=== PATIENT | female | born 2000 | race Caucasian/White ===

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

== ENCOUNTER 2018-09-03 01:20 | Emergency (ER) | payer SELFPAY ==
--- NOTE | 2018-09-03 02:08 | ER Document Report ---
ED General - General Chief Complaint: Loose Stools Stated Complaint: DIARRHEA Time Seen by Provider: 09/03/18 01:56 Mode of Arrival: Ambulatory Information source: Patient TRAVEL OUTSIDE OF THE [place] 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, rash on the right foot Onset: Yesterday Onset/Duration: Better Quality of pain: Achy, Cramping Severity: Mild Pain Level: 1 Associated symptoms: Diarrhea Exacerbated by: Denies Relieved by: Denies Similar symptoms previously: No Recently seen / treated by doctor: No Notes: Patient is a 18-year-old female presenting to the emergency room complaining of an itchy rash on the dorsum of her right foot that has been present for several weeks, she has been applying hydrocortisone cream with no relief, she also states that over the last 2 days she has had some loose stools and possibly passed a warm today, states the warm was white with a black dot on the tip, and resembled a "meal worm", she had some vomiting yesterday but none today, she denies any abdominal pain at present, no fevers, she denies any recent traveling , no consumption of unclean water or undercooked foods - Related Data Allergies/Adverse Reactions: No Known Allergies Allergy (Verified 03/23/17 01:08) Past Medical History - General Information source: Patient - Social History Smoking Status: Current Every Day Smoker Frequency of alcohol use: Social Drug Abuse: Marijuana Family History: Reviewed & Not Pertinent Patient has suicidal ideation: No Patient has homicidal ideation: No Renal/ Medical History: Denies: Hx Peritoneal Dialysis Psychiatric Medical History: Reports: Hx Attention Deficit Hyperactivity Disorder, Hx Bipolar Disorder, Hx Depression Review of Systems - Review of Systems Constitutional: No symptoms reported EENT: No symptoms reported Cardiovascular: No symptoms reported Respiratory: No symptoms reported Gastrointestinal: See HPI Genitourinary: No symptoms reported Female Genitourinary: No symptoms reported Musculoskeletal: No symptoms reported Skin: See HPI Hematologic/Lymphatic: No symptoms reported Neurological/Psychological: No symptoms reported -: Yes All other systems reviewed and negative Physical Exam - Vital signs Vitals: Temp Pulse Resp BP Pulse Ox 98.9 F 108 H 18 149/86 H 100 09/03/18 01:25 09/03/18 01:25 09/03/18 01:25 09/03/18 01:25 09/03/18 01:25 Interpretation: Normal - General General appearance: Appears well, Alert - HEENT Head: Normocephalic, Atraumatic Eyes: Normal Pupils: PERRL - Respiratory Respiratory status: No respiratory distress Chest status: Nontender Breath sounds: Normal Chest palpation: Normal - Cardiovascular Rhythm: Regular Heart sounds: Normal auscultation Murmur: No - Abdominal Inspection: Normal Distension: No distension Bowel sounds: Normal Tenderness: Nontender Organomegaly: No organomegaly - Back Back: Normal, Nontender - Extremities General upper extremity: Normal inspection, Nontender, Normal color, Normal ROM , Normal temperature General lower extremity: Normal inspection, Nontender, Normal color, Normal ROM , Normal temperature, Normal weight bearing. No: Wilbur's sign - Neurological Neuro grossly intact: Yes Cognition: Normal Orientation: AAOx4 [place] Coma Scale Eye Opening: Spontaneous [place] Coma Scale Verbal: Oriented [place] Coma Scale Motor: Obeys Commands [place] Coma Scale Total: 15 Speech: Normal Motor strength normal: LUE, RUE, LLE, RLE Sensory: Normal - Psychological Associated symptoms: Normal affect, Normal mood - Skin Skin Temperature: Warm Skin Moisture: Dry Skin Color: Normal Location of irregularity: Other - On the dorsum of the right foot is a 3 cm circular erythematous lesion with central clearing, no drainage, no tenderness, no change in temperature, distal sensation and motor is 2+ DP pulses Course - Re-evaluation Re-evalutation: 09/03/18 02:08 18-year-old female with loose watery stools with passage of possible parasitic 1 today, also having a rash on the dorsum of her right foot which resembles ringworm, she will be given a topical antifungal and an oral antiparasitic prescription, with instructions to follow-up with primary care or return if symptoms worsen, patient acknowledges understanding and agreement with this plan 09/03/18 02:27 Patient was unable to provide a stool sample today, however her description is consistent with likely pinworm or other parasitic worm, therefore given a prescription for albendazole and also prescription for clotrimazole topical cream for the tinea corporis on her right foot, patient advised to follow-up with a primary care provider or return if symptoms worsen - Vital Signs Vital signs: Temp Pulse Resp BP Pulse Ox 98.9 F 108 H 18 149/86 H 100 09/03/18 01:25 09/03/18 01:25 09/03/18 01:25 09/03/18 01:25 09/03/18 01:25 Discharge - Discharge Clinical Impression: Parasitic intestinal disease Ringworm of foot Qualifiers: Laterality: right Qualified Code(s): B35.3 - Tinea pedis Condition: Stable Disposition: HOME, SELF-CARE Instructions: Intestinal Parasites - Pinworms ([facility]), Ringworm (Tinea Corporis) ([facility]) Additional Instructions: Follow up with your primary care provider in one to 2 days. Return to the emergency room immediately if symptoms worsen or any additional concerns. Prescriptions: Albendazole [Albenza] 200 mg PO ONCE PRN #2 tablet PRN Reason: Clotrimazole 1% Topical [Lotrimin 1% Topical Soln 10 ml] 1 applic TP BID #10 ml
[2018-09-03 02:31] VITALS: BP 139/89
== END 2018-09-03 02:32 | disposition home or self-care (01) ==
LOC: ER 01:20
DX: B82.9 Intestinal parasitism, unspecified (principal); B35.3 Tinea pedis; R19.7 Diarrhea, unspecified; F17.200 Nicotine dependence, unspecified, uncomplicated
CPT/HCPCS: 99283

== ENCOUNTER 2018-12-28 03:44 | Emergency (ER) | payer SELFPAY ==
[2018-12-28 03:54] VITALS: BP 137/87
[2018-12-28] MEDS ORDERED: IPRATROPIUM/ALBUTEROL 0.5-2.5 MG/3 ML AMPUL NEB ONE (04:14)
[2018-12-28] MEDS ORDERED: GUAIFENESIN/CODEINE PHOS 100-10 MG/ 5 ML UDC PO ONE (04:15)
[2018-12-28] MEDS ORDERED: IBUPROFEN 600 MG TABLET PO ONE (04:21)
--- NOTE | 2018-12-28 04:24 | ER Document Report ---
ED General - General Chief Complaint: Congestion Stated Complaint: BODY ACHES Time Seen by Provider: 12/28/18 04:11 Mode of Arrival: Ambulatory Information source: Patient, [facility] [place] Records Notes: 18-year-old female with bipolar disorder, depression presents with complaint of cough, body aches that started 1 day prior to arrival. Patient describes the cough as constant, nonproductive. She denies any associated headache, sore throat, ear pain, shortness of breath, chest pain. She does admit to upper back pain, rib pain when coughing and describes it as an aching pain. She has tried [id number] cough medicine without relief. Patient has not received a flu shot. Patient is a tobacco user. TRAVEL OUTSIDE OF THE [place] IN LAST 30 DAYS: No - HPI Onset: Yesterday Onset/Duration: Gradual, Persistent Quality of pain: Achy Associated symptoms: Body/muscle aches, Nonproductive cough. denies: Diarrhea, Headache, Nausea, Vomiting, Rhinnorhea, Shortness of breath Exacerbated by: Coughing Relieved by: Denies Similar symptoms previously: Yes Recently seen / treated by doctor: No - Related Data Allergies/Adverse Reactions: No Known Allergies Allergy (Verified 03/23/17 01:08) Past Medical History - General Information source: Patient, [facility] [place] Records - Social History Smoking Status: Never Smoker Chew tobacco use (# tins/day): No Frequency of alcohol use: None Drug Abuse: None Lives with: Family Family History: Reviewed & Not Pertinent Patient has suicidal ideation: No Patient has homicidal ideation: No Renal/ Medical History: Denies: Hx Peritoneal Dialysis Psychiatric Medical History: Reports: Hx Attention Deficit Hyperactivity Disorder, Hx Bipolar Disorder, Hx Depression Review of Systems - Review of Systems Notes: REVIEW OF SYSTEMS: CONSTITUTIONAL : Denies fever, chills, or sweats. Denies recent illness. Denies weight loss, recent hospitalizations. EENT: Denies visual changes, eye pain. Denies sore throat, oral lesions, difficulty swallowing. CARDIOVASCULAR: Denies chest pain. Denies palpitations. Denies lower extremity edema. RESPIRATORY: Denies shortness of breath, wheezing. GASTROINTESTINAL: Denies abdominal pain or distention. Denies nausea, vomiting, or diarrhea. Denies blood in vomitus, stools, or per rectum. Denies black, tarry stools. Denies constipation. GENITOURINARY: Denies difficulty urinating, painful urination, frequency, blood in urine, or vaginal discharge. MUSCULOSKELETAL: Denies neck pain or stiffness. Denies joint swelling. SKIN: Denies rash, lesions or sores. HEMATOLOGIC : Denies easy bruising or bleeding. LYMPHATIC: Denies swollen glands. NEUROLOGICAL: Denies confusion or altered mental status. Denies loss of consciousness. Denies dizziness or lightheadedness. Denies headache. Denies weakness or paralysis. Denies problems difficulty with ambulation, slurred speech. Denies sensory loss, numbness, or tingling. Denies seizures. PSYCHIATRIC: Denies anxiety or stress. Denies depression, suicidal ideation, or homicidal ideation. Denies visual or auditory hallucinations. Physical Exam - Vital signs Vitals: Temp Pulse Resp BP 100.3 F 65 16 137/87 H 12/28/18 03:45 12/28/18 03:45 12/28/18 03:45 12/28/18 03:45 - Notes Notes: PHYSICAL EXAMINATION: GENERAL: Well-appearing, well-nourished and in no acute distress. HEAD: Atraumatic, normocephalic. EYES: Pupils equal round and reactive to light, extraocular movements intact, conjunctiva are normal. ENT: Nares patent, oropharynx clear without exudates. Moist mucous membranes. NECK: Normal range of motion, supple without lymphadenopathy LUNGS: Breath sounds clear to auscultation bilaterally and equal. No wheezes rales or rhonchi. HEART: Regular rate and rhythm without murmurs ABDOMEN: Soft, nontender, nondistended abdomen. No guarding, no rebound. No masses appreciated. Female : deferred Musculoskeletal: Normal range of motion, no pitting or edema. No cyanosis. NEUROLOGICAL: Cranial nerves grossly intact. Normal speech, normal gait. Normal sensory, motor exams PSYCH: Normal mood, normal affect. SKIN: Warm, Dry, normal turgor, no rashes or lesions noted. Course - Re-evaluation Re-evalutation: 12/28/18 04:23 Temp Pulse Resp BP Pulse Ox 100.3 F 65 16 137/87 H 12/28/18 03:45 12/28/18 03:45 12/28/18 03:45 12/28/18 03:45 Chest X-Ray 12/28/18 04:11 IMPRESSION: No acute cardiopulmonary abnormality copyright 2010 [employer]- All Rights Reserved Laboratory 12/28/18 04:15 Influenza A (Rapid) NEGATIVE Influenza B (Rapid) NEGATIVE 18-year-old female presents with complaint of cough, myalgia, upper back pain that started yesterday. Cough is described as dry, persistent. Patient has tried [id number] cough medicine without relief. Upon arrival patient does have a fever but is not tachycardic or hypoxic. She has no increased work of breathing, accessory muscle use. Previous medical records and nursing notes were reviewed. Patient does not appear toxic or dehydrated. She is in no acute distress. Chest x-ray pending. Patient was administered a DuoNeb and Robitussin during her ED course. Prior to completing patient's evaluation she is requesting discharge home. Chest x-ray was obtained and showed no acute process and influenza was negative. 12/28/18 06:09 - Vital Signs Vital signs: Temp Pulse Resp BP Pulse Ox 100.3 F 65 16 137/87 H 12/28/18 03:45 12/28/18 03:45 12/28/18 03:45 12/28/18 03:45 - Diagnostic Test Radiology reviewed: Image reviewed, Reports reviewed Discharge - Discharge Clinical Impression: URI (upper respiratory infection) Qualifiers: URI type: unspecified URI Qualified Code(s): J06.9 - Acute upper respiratory infection, unspecified Condition: Good Disposition: HOME, SELF-CARE Instructions: Upper Respiratory Illness ([facility]), Viral Syndrome ([facility]) Additional Instructions: Your symptoms are most likely due to a viral infection it should resolve over the next 7-14 days. You should take idcv-ogt-[id number] guanfacine per bottle instructions to help thin the mucus. For nasal congestion: I would recommend that you get [id number] oxymetazoline also known is afrin. Use only per bottle instructions and be sure to never use this for more than 3 days if you can develop severe rebound congestion. You may also use tylenol or ibuprofen as needed for aches and thorat discomfort. Please be sure to drink plenty of fluids and get rest. Return to the emergency department he began having difficulty breathing, chest pain, persistent vomiting, or any other symptoms that are concerning to you. Prescriptions: Guaifenesin/Codeine Phos [Robitussin-AC Syrup 59 ml] 5 ml PO Q12H #50 ml Forms: Elevated Blood Pressure, Return to Work
--- NOTE | 2018-12-28 04:41 | RADIOLOGY REPORT (SQ) ---
EXAM DESCRIPTION: XR CHEST 2 VIEWS COMPLETED DATE/TME: 12/28/2018 04:11 CLINICAL HISTORY: 18 years, Female, cough fever COMPARISON: 09/15/2015 NUMBER OF VIEWS: Two TECHNIQUE: Two views of the chest LIMITATIONS: None. FINDINGS: Lungs are clear. The heart is normal in size. There is no pneumothorax or pleural effusion. The bones are unremarkable. IMPRESSION: No acute cardiopulmonary abnormality copyright 2010 [employer]- All Rights Reserved
[2018-12-28 04:54] LABS: A TYPE INFLUENZA AG NEGATIVE (NEGATIVE); B INFLUENZA AG NEGATIVE (NEGATIVE)
== END 2018-12-28 04:55 | disposition home or self-care (01) ==
LOC: ER 03:44
DX: J06.9 Acute upper respiratory infection, unspecified (principal); R05 Cough; R51 Headache; J02.9 Acute pharyngitis, unspecified; R06.02 Shortness of breath; R07.9 Chest pain, unspecified; M54.6 Pain in thoracic spine; R07.81 Pleurodynia
CPT/HCPCS: 71046; 87804; 99283